=== PATIENT | female | born 1990 | race Caucasian/White ===

== ENCOUNTER 2017-04-26 15:08 | Emergency (ER) | payer OTHER ==
[2017-04-26] MEDS ORDERED: hydrOXYzine HCL TAB* 50 MG PO ONE (15:43)
[2017-04-26 16:49] LABS: ABS Basophils 0.1 10^3/ul (0-0.2); ABS Eosinophils 0.1 10^3/ul (0-0.6); ABS Lymphocytes 1.6 10^3/ul (1.0-4.8); ABS Monocytes 0.8 10^3/ul (0-0.8); ABS Neutrophils 6.1 10^3/ul (1.5-7.7); ABS Nucleated RBC 0 10^3/ul; Eosinophil % 1.2 % (0-6); Hematocrit 38 % (35-47); Hemoglobin 13.2 g/dl (12.0-16.0); Lymphocyte % 18.6 % (25-47); Mean Corpuscular HGB Conc 34 g/dl (31-36); Mean Corpuscular Hemoglobin 30 pg (27-31); Mean Corpuscular Volume 87 fL (80-97); Mean Platelet Volume 7.1 um3 (7.4-10.4); Nucleated Red Blood Cells % 0; Platelet Count 380 10^3/ul (150-450); Red Cell Distribution Width 13 % (10.5-15); White Blood Count 8.6 10^3/ul (3.5-10.8)
[2017-04-26 17:06] LABS: EGFR Non-African American 95.6 (>60)
[2017-04-26 19:04] VITALS: BP 99/65
--- NOTE | 2017-04-26 20:09 | ED ---
Zach Mullen Thomas, scribed for George Espinal MD on 04/26/17 at 1538 . Complex/Multi-Sys Presentation - HPI Summary HPI Summary: The patient is a 26 year old female complaining of palpitations and trouble breathing for the last 36 hours. Per triage note, she complains of chest tightness. She denies recent travel and recent medication changes. Past medical history includes anxiety. Recently, the patient has been increased anxiety and panic attacks for the last few months. - History Of Current Complaint Chief Complaint: EDDysrhythmPalp Time Seen by Provider: 04/26/17 15:21 Hx Obtained From: Patient Onset/Duration: Lasting Hours - 36, Still Present Timing: Constant Severity Currently: Moderate Alleviating Factor(s): None Associated Signs And Symptoms: Positive: Other - Palpitations, SOB, chest tightness - Allergies/Home Medications Allergies/Adverse Reactions: Allergies Allergy/AdvReac Type Severity Reaction Status Date / Time No Known Allergies Allergy Verified 06/11/14 17:23 PMH/Surg Hx/FS Hx/Imm Hx Cardiovascular History: Denies: Hx Myocardial Infarction Psychiatric History: Reports: Hx Anxiety Infectious Disease History: No Infectious Disease History: Denies: Hx Clostridium Difficile, Hx Hepatitis, Hx Human Immunodeficiency Virus (HIV), Hx of Known/Suspected MRSA, Hx Shingles, Hx Tuberculosis, Hx Known/ Suspected VRE, Hx Known/Suspected VRSA, History Other Infectious Disease, Traveled Outside the in Last 30 Days - Family History Known Family History: Positive: Other - Patient denies relevant Fhx - Social History Alcohol Use: Occasionally Substance Use Type: Reports: None Smoking Status (MU): Never Smoked Tobacco Review of Systems Negative: Fever Positive: Palpitations, Other - Chest tightnses Positive: Shortness Of Breath All Other Systems Reviewed And Are Negative: Yes Physical Exam - Summary Physical Exam Summary: Appearance: The patient is well-nourished in no acute distress and in no acute pain. Skin: The skin is warm and dry and skin color reflects adequate perfusion. HEENT: The head is normocephalic and atraumatic. The pupils are equal and reactive. The conjunctivae are clear and without drainage. Nares are patent and without drainage. Mouth reveals moist mucous membranes and the throat is without erythema and exudate. The external ears are intact. The ear canals are patent and without drainage. The tympanic membranes are intact. Neck: the neck is supple with full range of motion and non-tender. There are no carotid bruits. There is no neck vein distension. Respiratory: Chest is non-tender. Lungs are clear to auscultation and breath sounds are symmetrical and equal. Cardiovascular: Heart is regular rate and rhythm. There is no murmur or rub auscultated. There is no peripheral edema and pulses are symmetrical and equal. Abdomen: The abdomen is soft and non-tender. There are normal bowel sounds heard in all four quadrants and there is no organomegaly palpated. Musculoskeletal: There is no back tenderness noted. Extremities are non-tender with full range of motion. There is good capillary refill. There is no peripheral edema or calf tenderness elicited. Neurological: Patient is alert and oriented to person, place and time. The patient has symmetrical motor strength in all four extremities. Cranial nerves are grossly intact. Deep tendon reflexes are symmetrical and equal in all four extremities. Psychiatric: The patient has an appropriate affect and does not exhibit any anxiety or depression. Triage Information Reviewed: Yes Vital Signs On Initial Exam: Initial Vitals Temp Pulse Resp BP Pulse Ox 98.6 F 107 22 128/85 100 04/26/17 15:11 04/26/17 15:11 04/26/17 15:11 04/26/17 15:11 04/26/17 15:11 Vital Signs Reviewed: Yes Diagnostics - Vital Signs Vital Signs Temp Pulse Resp BP Pulse Ox 04/26/17 15:11 98.6 F 107 22 128/85 100 - Laboratory Lab Results: Lab Results 04/26/17 04/26/17 04/26/17 Range/Units 16:37 16:37 16:37 WBC 8.6 (3.5-10.8) 10^3/ul RBC 4.40 (4.0-5.4) 10^6/ul Hgb 13.2 (12.0-16.0) g/dl Hct 38 (35-47) % MCV 87 (80-97) fL MCH 30 (27-31) pg MCHC 34 (31-36) g/dl RDW 13 (10.5-15) % Plt Count 380 (150-450) 10^3/ul MPV 7.1 L (7.4-10.4) um3 Neut % (Auto) 70.6 (38-83) % Lymph % (Auto) 18.6 L (25-47) % [place] % (Auto) 8.8 H (0-7) % Eos % (Auto) 1.2 (0-6) % Baso % (Auto) 0.8 (0-2) % Absolute Neuts (auto) 6.1 (1.5-7.7) 10^3/ul Absolute Lymphs (auto) 1.6 (1.0-4.8) 10^3/ul Absolute Monos (auto) 0.8 (0-0.8) 10^3/ul Absolute Eos (auto) 0.1 (0-0.6) 10^3/ul Absolute Basos (auto) 0.1 (0-0.2) 10^3/ul Absolute Nucleated RBC 0 10^3/ul Nucleated RBC % 0 Sodium 137 (133-145) mmol/L Potassium 3.4 L (3.5-5.0) mmol/L Chloride 104 (101-111) mmol/L Carbon Dioxide 24 (22-32) mmol/L Anion Gap 9 (2-11) mmol/L BUN 10 (6-24) mg/dL Creatinine 0.74 (0.51-0.95) mg/dL Est GFR ( Amer) 123.0 (>60) Est GFR (Non-Af Amer) 95.6 (>60) BUN/Creatinine Ratio 13.5 (8-20) Glucose 86 (70-100) mg/dL Lactic Acid 1.2 (0.5-2.0) mmol/L Calcium 9.7 (8.6-10.3) mg/dL Magnesium 2.1 (1.9-2.7) mg/dL Total Bilirubin 0.50 (0.2-1.0) mg/dL AST 16 (13-39) U/L ALT 12 (7-52) U/L Alkaline Phosphatase 73 (34-104) U/L Troponin I 0.00 (<0.04) ng/mL Total Protein 7.2 (6.4-8.9) g/dL Albumin 4.5 (3.2-5.2) g/dL Globulin 2.7 (2-4) g/dL Albumin/Globulin Ratio 1.7 (1-3) TSH 2.63 (0.34-5.60) mcIU/mL Result Diagrams: 04/26/17 16:37 04/26/17 16:37 Lab Statement: Any lab studies that have been ordered have been reviewed, and results considered in the medical decision making process. - EKG 15:32 Cardiac Rate: NL EKG Rhythm: Sinus Rhythm - at 94 BPM Complex Multi-Symp Course/Dx Course Of Treatment: Ms. Pickett presented with about a day of palpitations. She was clearly anxious on arrival and was given hydroxyzine while we monitored her and got labs. The labs were normal and she felt improved. She was reassured and recommended F/U with her PMD. - Diagnoses Provider Diagnoses: Palpitations, Anxiety Discharge - Sign-Out/Discharge Documenting (check all that apply): Discharge - Discharge Plan Condition: Stable Disposition: HOME Patient Education Materials: Heart Palpitations (ED), Anxiety (ED) Referrals: Non Staff,Doctor [Primary Care Provider] - - Billing Disposition and Condition Condition: STABLE Disposition: HOME The documentation as recorded by the Zach gary Thomas accurately reflects the service I personally performed and the decisions made by me, George Espinal MD.
== END 2017-04-26 19:03 | disposition home or self-care (01) ==
LOC: ED 15:08
DX: R00.2 Palpitations (principal); R06.02 Shortness of breath; F41.9 Anxiety disorder, unspecified
CPT/HCPCS: 36415; 80053; 83605; 83735; 84443; 84484; 85025; 93005; 99282; A9270-GY

== ENCOUNTER 2023-06-10 10:14 | Inpatient (IN) ==
[2023-06-10] MEDS ORDERED: Lidocaine 1% VIAL 10 MG/ML 30 ML VIAL INJ PRN (11:47)
[2023-06-10 12:30] LABS: ABS Basophils 0.1 10^3/uL (0.0-0.1); ABS Eosinophils 0.1 10^3/uL (0.0-0.5); ABS Lymphocytes 2.2 10^3/uL (1.0-4.8); ABS Neutrophils 8.7 10^3/uL (1.5-7.6); ABS Nucleated RBC 0.01 10^3/ul; Eosinophil % 0.9 %; Hematocrit 36.4 % (35-45); Hemoglobin 12.5 g/dL (11.5-14.3); Lymphocyte % 18.5 %; Mean Corpuscular Hemoglobin 30.7 pg (27-33); Mean Corpuscular Hgb Conc 34.4 g/dL (31-36); Mean Corpuscular Volume 89.1 fL (80-97); Mean Platelet Volume 6.9 fL (7.5-11.2); Nucleated Red Blood Cells % 0.1 %/100WBC (0.0-0.8); Platelet Count 311 10^3/uL (150-450); Red Blood Count 4.08 10^6/uL (3.63-4.92); White Blood Count 12.1 10^3/uL (3.8-11.8)
[2023-06-10] MEDS: Lactated Ringers 1000 ml BAG 1,000 ML IV ONE ×2 (12:32→20:34)
[2023-06-10 13:03] LABS: Urine Benzodiazepine Screen None Detected (None Detect); Urine Cannabinoids Screen None Detected (None Detect); Urine Opiates Screen None Detected (None Detect)
[2023-06-10] MEDS: Lactated Ringers 1000 ml BAG 1,000 ML IV SCH ×2 (13:27→20:34)
[2023-06-10] MEDS: OBEPIDURAL (200 ML) 200 ML EPIDURAL ONE (13:33)
[2023-06-10] MEDS ORDERED: Phenylephrine 40 mcg/mL 10mL (400mcg) SYRINGE IV PUSH PRN (13:37)
[2023-06-10] MEDS: Phenylephrine 40 mcg/mL 10mL (400mcg) SYRINGE IV PUSH PRN (14:32)
[2023-06-10 14:40] LABS: Urine Appearance Clear; Urine Bilirubin Negative (Negative); Urine Blood Trace (Negative); Urine Color Light-Yellow; Urine Glucose Negative (Negative); Urine Ketones 1+ (Negative); Urine Nitrite Negative (Negative); Urine Protein Negative (Negative); Urine Specific Gravity 1.014 (1.002-1.030); Urine Urobilinogen Negative (Negative); Urine pH 7.5 (5.0-8.0)
[2023-06-10] MEDS: Ondansetron 4 mg VIAL 2 MG/ML 2 ml VIAL IV ONE (15:19)
[2023-06-10] MEDS ORDERED: Morphine PF AMP (0.5MG/ML) 5 MG/10 ML AMP ONE (19:54)
[2023-06-10] MEDS: OBEPIDURAL (200 ML) 200 ML EPIDURAL SCH (20:31)
[2023-06-10] MEDS: Lidocaine 1.5% EPI 1:200,000 30 ML SDV ONE (20:33)
[2023-06-10] MEDS: Buffered Lidocaine 1% SYRIN 1 ml INTRADERM ONE (20:33)
[2023-06-10] MEDS ORDERED: Dibucaine 1% OINT 28.35 GM TUBE PR PRN (22:22)
[2023-06-10] MEDS ORDERED: Glycerin ADULT 2.4 gm SUPP PR PRN (22:22)
[2023-06-10] MEDS ORDERED: Witch Hazel PAD JAR TOPICAL PRN (22:22)
[2023-06-11] MEDS: Oxytocin in LR 20,000 MILLI.UNIT/1,000 ML BAG IV ONE (05:42)
[2023-06-11 06:53] LABS: ABS Lymphocytes 1.9 10^3/uL (1.0-4.8); ABS Monocytes 1.2 10^3/uL (0.0-0.9); ABS Neutrophils 13.5 10^3/uL (1.5-7.6); ABS Nucleated RBC 0.01 10^3/ul; Eosinophil % 0.1 %; Hematocrit 31.2 % (35-45); Hemoglobin 10.6 g/dL (11.5-14.3); Lymphocyte % 11.3 %; Mean Corpuscular Hemoglobin 30.3 pg (27-33); Mean Corpuscular Hgb Conc 33.9 g/dL (31-36); Mean Corpuscular Volume 89.4 fL (80-97); Mean Platelet Volume 7.1 fL (7.5-11.2); Platelet Count 267 10^3/uL (150-450); Red Blood Count 3.49 10^6/uL (3.63-4.92); Red Cell Distribution Width 15.6 % (12-17); White Blood Count 16.6 10^3/uL (3.8-11.8)
[2023-06-12 08:50] VITALS: BP 105/66
== END 2023-06-12 13:00 | disposition home or self-care (01) | DRG 560 ==
LOC: MCHOBOUT 10:14 → MCHOB 11:49
PROVIDERS: ADMIT Midwife; ATTEND Midwife